=== PATIENT | female | born 1975 | race Caucasian/White ===

== ENCOUNTER → 2025-02-01 12:18 | Outpatient (BNVA) | payer OTHER, SELFPAY | PROVIDERS: Visit Provider Internal Medicine | DX: E07.9 Disorder of thyroid, unspecified (principal) | CPT/HCPCS: 36415; 84439; 84443; 84480; 86376; 86800 ==

== ENCOUNTER 2025-02-22 09:27 | Outpatient (CLI) | payer OTHER, SELFPAY ==
--- NOTE | 2025-02-22 09:30 | MR_ITS ---
WS: [id number] MRI HEAD without and with gadolinium with pituitary protocol TECHNIQUE: Sagittal T1, T2 axial, T2 axial FLAIR, axial susceptibility weighted imaging, axial diffusion weighted images, and coronal T2 images were obtained. Pre and post-T1 axial and post T1 coronal images. ADC and FSPGR images. 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 FINDINGS: No evidence of sellar or suprasellar mass. Normal pituitary enhancement. No evidence of microadenoma. Normal cavernous sinuses and Meckel's cave. No abnormal gadolinium enhancement. Normal dural venous sinuses. No restricted diffusion to suggest acute ischemia. No suspicious intracranial signal abnormalities. Normal posterior fossa. Normal vascular flow voids at the skull base. No extra-axial fluid collections. Paranasal sinuses are well aerated. Mild mucosal thickening in the mastoid tips. No hemosiderin. No other suspicious findings. MR/MR pituitary wo/w con* [id number] IMPRESSION: 1. No evidence of restricted diffusion to suggest acute ischemia. 2. No suspicious intracranial signal abnormalities. 3. Normal optic chiasm and pituitary infundibulum. No evidence of sellar or keyes prasellar lesion. 4. Normal pituitary enhancement. 5. No evidence of microadenoma.
[2025-02-22] MEDS: gadobenate dimeglumine 20 mL vial 15 ML IV (10:32)
== END 2025-02-22 09:28 | disposition home or self-care (01) ==
LOC: RAD 09:28
PROVIDERS: Visit Provider Internal Medicine
DX: E23.7 Disorder of pituitary gland, unspecified (principal); R79.89 Other specified abnormal findings of blood chemistry; R53.83 Other fatigue; H74.8X3 Other specified disorders of middle ear and mastoid, bilateral
CPT/HCPCS: 70553